=== PATIENT | female | born 1995 | race Caucasian/White ===

== ENCOUNTER → 2017-10-08 11:49 | Outpatient (CLI) | payer OTHER, SELFPAY ==
[2017-10-08 14:41] LABS: Free T3 2.3 pg/mL (2.18-3.98); T4 Free Direct 1.33 ng/dL (0.76-1.46); Thyroid Stim Hormone (TSH) 1.87 uIU/mL (0.358-3.74)
== END ==
PROVIDERS: Family Provider Family Medicine; PCP Family Medicine; Visit Provider Nurse Practitioner
DX: E07.9 Disorder of thyroid, unspecified (principal)
CPT/HCPCS: 36415; 84439; 84443; 84481

== ENCOUNTER → 2017-10-19 11:51 | Outpatient (CLI) | payer OTHER, SELFPAY ==
[2017-10-19 11:58] LABS: Mucous, Urine 0 SEEN /hpf (<or=2+); Red Blood Cells-Urine 0 SEEN /hpf (0-5); Squamous Epithelial Cells - UA 0 SEEN /hpf (5-10); White Blood Cells 0 SEEN /hpf (0-5)
[2017-10-19 13:48] LABS: Color, Urine Yellow (Yellow); Glucose, Dipstick Normal (Normal); Ketone-Dipstick Negative (Negative); Leukocyte Esterase-Dipstick Negative /ul (Negative); Nitrite-Dipstick Negative (Negative); Occult Blood-Urine Negative /ul (Negative); Protein-Dipstick Negative (Negative); Urine Bilirubin Dipstick Negative (Negative); Urine Clarity Cloudy (Clear); Urine Urobilinogen Normal (Normal)
[2017-10-19 13:54] LABS: Amorphous Sediment 1+; Bacteria RARE /hpf (None Seen)
[2017-10-19 14:02] LABS: Hemoglobin A1c 4.9 % (4.2-6.3)
[2017-10-19 19:05] LABS: ALB/GLOB Ratio 1.1 RATIO (0.9-2.4); AST(SGOT) 21 U/L (15-37); Alanine Aminotransfer ALT/SGPT 21 U/L (13-56); Albumin, Serum 4.2 g/dL (3.2-5.0); Alkaline Phosphatase 51 U/L (45-117); Anion Gap 7 (5-15); BUN 11 mg/dL (7-18); BUN/Creat Ratio 13.8 RATIO (10-20); Calcium,Total 8.9 mg/dL (8.5-10.1); Chloride 106 mmol/L (98-107); EST Glomerular Filtration Rate 97 mL/min (>60); Est Glom Filt Rate - Afr Amer 117 mL/min (>60); Globulin 3.8 g/dL (2.2-4.2); Glucose 79 mg/dL (74-106); Potassium 4.1 mmol/L (3.5-5.1); Sodium Level 140 mmol/L (136-145)
== END ==
PROVIDERS: Family Provider Family Medicine; PCP Family Medicine; Visit Provider Nurse Practitioner
DX: R53.82 Chronic fatigue, unspecified (principal); R53.81 Other malaise; R35.0 Frequency of micturition
CPT/HCPCS: 36415; 80053; 81001; 83036

== ENCOUNTER → 2018-09-06 | Outpatient (CLI) | payer OTHER, SELFPAY ==
[2017-10-12 13:57] VITALS: BMI 22.1
[2018-09-06 18:08] LABS: T4 Total, Thyroxin 16.9 ug/dL (4.8-13.9)
[2018-09-11 16:22] LABS: V-Zoster IgG (Immunity) 2100 index (Immune >165)
== END | disposition home or self-care (01) ==
LOC: MFPLAB 15:30
PROVIDERS: Family Provider Family Medicine; PCP Family Medicine; Referring Provider Family Medicine; Visit Provider Family Medicine
DX: Z00.00 Encounter for general adult medical examination without abnormal findings (principal); E03.9 Hypothyroidism, unspecified
CPT/HCPCS: 36415; 84436; 84443; 86787

== ENCOUNTER → 2019-12-21 15:20 | Outpatient (CLI) | payer OTHER, SELFPAY ==
[2017-10-12 13:57] VITALS: BMI 22.1
[2019-12-21 18:09] LABS: T4 Free Direct 1.54 ng/dL (0.76-1.46); Thyroid Stim Hormone (TSH) 1.39 uIU/mL (0.358-3.74)
== END ==
PROVIDERS: PCP Family Medicine; Referring Provider Internal Medicine Endocrinology, Diabetes & Metabolism; Visit Provider Internal Medicine Endocrinology, Diabetes & Metabolism
DX: E03.9 Hypothyroidism, unspecified (principal)
CPT/HCPCS: 36415; 84439; 84443

== ENCOUNTER → 2020-05-01 | Outpatient (CLI) | payer OTHER, SELFPAY ==
[2020-05-01 14:52] VITALS: BMI 24.4
[2020-05-04 16:08] LABS: Chlamydia By Nucleic Acid AMP Positive (Negative)
[2020-05-05 07:56] LABS: Gonococcus By Nucleic Acid AMP Negative (Negative)
[2020-05-06 16:24] LABS: HPV Reflexed? NOT INDICATED
== END | disposition home or self-care (01) ==
LOC: LABSPEC 16:29
PROVIDERS: PCP Family Medicine; Referring Provider Nurse Practitioner Women's Health; Visit Provider Nurse Practitioner Women's Health
DX: Z12.4 Encounter for screening for malignant neoplasm of cervix (principal); Z11.3 Encounter for screening for infections with a predominantly sexual mode of transmission; N76.0 Acute vaginitis
CPT/HCPCS: 87070; 87205; 87491; 87591; 88175; G0145

== ENCOUNTER → 2020-06-04 | Outpatient (CLI) | payer OTHER, SELFPAY ==
[2020-06-04 14:59] VITALS: BMI 25.1
[2020-06-07 20:08] LABS: Chlamydia By Nucleic Acid AMP Negative (Negative)
[2020-06-07 20:32] LABS: Gonococcus By Nucleic Acid AMP Negative (Negative)
== END | disposition home or self-care (01) ==
LOC: LABSPEC 16:10
PROVIDERS: PCP Family Medicine; Referring Provider Nurse Practitioner Women's Health; Visit Provider Nurse Practitioner Women's Health
DX: Z11.3 Encounter for screening for infections with a predominantly sexual mode of transmission (principal)
CPT/HCPCS: 87491; 87591

== ENCOUNTER → 2020-12-06 | Outpatient (CLI) | payer OTHER, SELFPAY ==
[2020-12-06 17:58] LABS: Mucous, Urine 0 SEEN /hpf (<or=2+); Red Blood Cells-Urine 0 SEEN /hpf (0-5)
[2020-12-06 18:03] LABS: Color, Urine Yellow (Yellow); Glucose, Dipstick Normal (Normal); Ketone-Dipstick Negative (Negative); Leukocyte Esterase-Dipstick 25 /ul (Negative); Nitrite-Dipstick Negative (Negative); Occult Blood-Urine Negative /ul (Negative); Protein-Dipstick Negative (Negative); Specific Gravity, Urine 1.015 (1.002-1.030); Urine Bilirubin Dipstick Negative (Negative); Urine Clarity Clear (Clear); Urine Urobilinogen Normal (Normal)
[2020-12-06 18:09] LABS: Bacteria RARE /hpf (None Seen); Squamous Epithelial Cells - UA 0-5 SEEN /hpf (5-10); White Blood Cells 0-5 SEEN /hpf (0-5)
== END | disposition home or self-care (01) ==
PROVIDERS: Referring Provider Physician Assistant Surgical; Visit Provider Physician Assistant Surgical
DX: N39.0 Urinary tract infection, site not specified (principal)
CPT/HCPCS: 81001; 87086; 87088

== ENCOUNTER → 2021-01-29 15:21 | Outpatient (CLI) | payer OTHER, SELFPAY ==
[2021-01-29 17:53] LABS: T4 Free Direct 1.32 ng/dL (0.76-1.46); Thyroid Stim Hormone (TSH) 1.91 uIU/mL (0.358-3.74)
== END ==
PROVIDERS: PCP Family Medicine; Referring Provider Internal Medicine Endocrinology, Diabetes & Metabolism; Visit Provider Internal Medicine Endocrinology, Diabetes & Metabolism
DX: E03.1 Congenital hypothyroidism without goiter (principal)
CPT/HCPCS: 36415; 84439; 84443

== ENCOUNTER 2021-05-05 09:18 | Outpatient (CLI) | payer OTHER, SELFPAY ==
[2021-05-06 21:06] LABS: Chlamydia By Nucleic Acid AMP Negative (Negative)
[2021-05-07 14:14] LABS: Gonococcus By Nucleic Acid AMP Negative (Negative)
== END 2021-05-05 23:59 | disposition home or self-care (01) ==
LOC: LABSPEC 05-06 09:20
PROVIDERS: PCP Family Medicine; Visit Provider Nurse Practitioner Women's Health
DX: Z11.3 Encounter for screening for infections with a predominantly sexual mode of transmission (principal)
CPT/HCPCS: 87491; 87591

== ENCOUNTER → 2023-05-17 | Outpatient (CLI) | payer SELFPAY ==
--- OUTSIDE RECORDS SUMMARY | 2023-05-17 12:12 | XMS RPT_ITS | CCD ---
Author Name Unknown Address [address] [facility] [address] [place] [address] Organization [facility] Care Team Providers Care Finisher Hand Name Role Phone Kim HOUSING INSPECTOR, Debi Joseph Unavailable Medications Completed/Discontinued Medications Medication Drug Class(es) Dates Sig (Normalized) Sig (Original) LEVONORGESTREL-ETHINYL ESTRAD (1 source) take 1 tablet by mouth once daily AVIANE 0.1-20 MG-MCG TABS One tablet by mouth daily LEVONORGESTREL-ETHINY L ESTRAD [id number] Debi Dominguez Giuliano levothyroxine sodium 0.125 mg oral tablet (1 source) l-Thyroxine take 1 tablet by mouth once daily LEVOXYL 125 MCG TABS One tablet by mouth daily LEVOTHYROXINE SODIUM [id number] Debi Alvarez NP Problems Active Problems Problem Classification Problem Date Documented Da te Episodic/Chronic Thyroid disorders (1 source) Hypothyroidism; Translations: [Hypothyroidism, unspecified] Onset: 04-06-2016 04-06-2016 Chronic Past or Other Problems Problem Classification Problem Date Documented Da te Episodic/Chronic Nonmalignant breast conditions (1 source) Hypertrophy of breast; Translations: [Hypertrophy of breast] Onset: 11-30-2016 01-03-2017 Episodic Other inflammatory condition of skin (1 source) Intertrigo; Translations: [Erythema intertrigo] Onset: 11-30-2016 01-03-2017 Episodic Other non-traumatic joint disorders (1 source) Shoulder pain; Translations: [Pain in unspecified shoulder] Onset: 11-30-2016 01-03-2017 Episodic Spondylosis; intervertebral disc disorders; other back problems (3 sources) Thoracic back pain; Translations: [Low back pain] Onset: 11-30-2016 01-03-2017 Episodic Results Test Name Value Interpretation Reference Range Facil ity Vital Signs Date Time Vital Sign Value Performing Clinician Facility 11-30-2016 15:29-0400 BMI (Body Mass Index) 21.93 kg/m2 Debi Alvarez NP [facility] Work Phone: 11-30-2016 15:29-0400 Body Temperature 98.7 [degF] Debi Alvarez NP [facility] Work Phone: 11-30-2016 15:29-0400 Body Temperature 98.71 [degF] Debi Alvarez NP [facility] Work Phone: 11-30-2016 15:29-0400 BP Diastolic 79 mm[Hg] Debi Alvarez NP [facility] Work Phone: 11-30-2016 15:29-0400 BP Systolic 113 mm[Hg] Debi Alvarez NP [facility] Work Phone: 11-30-2016 15:29-0400 Height 156.21 cm Debi Alvarez NP [facility] Work Phone: 11-30-2016 15:29-0400 Pulse (Heart Rate) 83 /min Debi Alvarez NP [facility] Work Phone: 11-30-2016 15:29-0400 Respiratory Rate 18 /min Debi Alvarez NP [facility] Work Phone: 11-30-2016 15:29-0400 Weight 53.52 kg Debi Alvarez NP [facility] Work Phone: Procedures Date Procedure Procedure Detail Performing Clinician Start: 04-06-2016 End: 06-02-2016 Thyrotropin [Units/volume] in Serum or Plasma Debi Alvarez HOUSING INSPECTOR Work Phone: Start: 04-06-2016 End: 06-02-2016 Thyroxine (T4) free [Mass/volume] in Serum or Plasma Debi Alvarez HOUSING INSPECTOR Work Phone: Plan of Treatment Date Care Activity Detail Author Start: 12-14-2016 End: 12-16-2016 Thyroid stimulating hormone (TSH) *TSH [facility] Work Phone: Start: 12-14-2016 End: 12-16-2016 Thyroxine (T4) free *T4 free [facility] Work Phone: Start: 11-30-2016 End: 01-03-2017 Follow Up Appt Other Follow Up Appt Other [facility] Work Phone: Start: 04-06-2016 End: 05-22-2016 Thyroid stimulating hormone (TSH) *TSH [facility] Work Phone: Start: 04-06-2016 End: 05-22-2016 Thyroxine (T4) free *T4 free [facility] Work Phone: Additional Source Comments FOR RECORDS PERTAINING TO PATIENTS WHO ARE OR HAVE BEEN ENROLLED IN A CHEMICAL DEPENDENCY/SUBSTANCEABUSE PROGRAM, SOME INFORMATION MAY BE OMITTED. This clinical summary was aggregated from multiple sources. Caution should be exercised in using it in the provision of clinical care. This summary normalizes information from multiple sources, and as a consequence, information in this document may materially change the coding, format and clinical context of patient data. In addition, data may be omitted in some cases. CLINICAL DECISIONS SHOULD BE BASED ON THE PRIMARY CLINICAL RECORDS. [employer] [facility]. provides no warranty or guarantee of the accuracy or completeness of information in this document.
[2023-05-24 22:59] LABS: HPV Reflexed? NOT INDICATED
== END | disposition home or self-care (01) ==
LOC: LABSPEC 11:14
PROVIDERS: PCP Family Medicine; Referring Provider Nurse Practitioner Women's Health; Visit Provider Nurse Practitioner Women's Health
DX: Z12.4 Encounter for screening for malignant neoplasm of cervix (principal)
CPT/HCPCS: 88175; G0145

== ENCOUNTER → 2024-05-08 | Outpatient (CLI) | payer BC, SELFPAY ==
[2024-05-08 18:04] LABS: Absolute Lymphocyte Count 1.68 X10^3/uL (0.83-4.51); Absolute Neutrophil Count 6.4 X10^3/uL (2.0-7.7); Basophil# 0.03 X10^3/uL; Basophil% 0.3 % (0-1); Eosinophil# 0.32 X10^3/uL; Eosinophils% 3.6 % (0-5); Hematocrit 45.3 % (37-47); Hemoglobin 14.9 g/dL (12.0-15.0); Lymphocyte # 1.68 X10^3/ul (0.83-4.51); Lymphocyte % 18.7 % (19-41); Mean Corp Hgb Conc 32.9 g/dL (32-36); Mean Corpuscular Hgb 28.7 pg (27.0-32.0); Mean Corpuscular Volume 87.3 fL (81-99); Mean Platelet Vol. 11.8 fl (6.2-12.0); Monocyte# 0.55 X10^3/uL; Monocyte% 6.1 % (0-10); NRBC Flagged by Analyzer 0 % (0-5); Neutrophil # 6.37 X10^3/uL (2.7-7.7); Neutrophil % 71.1 % (47-70); Platelet Count 214 K/mm3 (150-450); RBC Distribution Width CV 12.3 % (11.6-14.6); RBC Distribution Width SD 39.2 fl (35.1-43.9); Red Blood Count 5.19 M/mm3 (4.2-5.4)
[2024-05-08 21:37] LABS: Ferritin 49 ng/mL (22-378); Vitamin B12 585 pg/mL (180-914); Vitamin D,25 Hydroxy 45.3 ng/mL (30-100)
== END | disposition home or self-care (01) ==
LOC: MTLAB 14:33
PROVIDERS: PCP Family Medicine; Referring Provider Internal Medicine Endocrinology, Diabetes & Metabolism; Visit Provider Internal Medicine Endocrinology, Diabetes & Metabolism
DX: E03.1 Congenital hypothyroidism without goiter (principal); E61.1 Iron deficiency; E53.8 Deficiency of other specified B group vitamins
CPT/HCPCS: 36415; 82306; 82607; 82728; 84439; 84443; 85025

== ENCOUNTER → 2024-07-27 | Outpatient (CLI) | payer BC, SELFPAY | END | disposition home or self-care (01) | LOC: MTLAB 15:21 | PROVIDERS: PCP Family Medicine; Referring Provider Internal Medicine Endocrinology, Diabetes & Metabolism; Visit Provider Internal Medicine Endocrinology, Diabetes & Metabolism | DX: E03.1 Congenital hypothyroidism without goiter (principal) | CPT/HCPCS: 36415; 84439; 84443 ==

== ENCOUNTER → 2025-01-19 | Outpatient (CLI) | payer BC, SELFPAY | END | disposition home or self-care (01) | LOC: MTLAB 14:30 | PROVIDERS: Referring Provider Nurse Practitioner Family; Visit Provider Nurse Practitioner Family | DX: E03.1 Congenital hypothyroidism without goiter (principal) | CPT/HCPCS: 36415; 84439; 84443 ==